=== PATIENT | male | born 1970 | race Caucasian/White ===

== ENCOUNTER 2018-09-28 14:54 | Emergency (ER) | payer BC ==
--- NOTE | 2018-09-28 15:57 | CR ---
[id number] RAD/RAD Fingers Left EXAM: LEFT HAND 3 VIEWS INDICATION: Crushed finger. COMPARISON: None. DISCUSSION: Apparent soft tissue injury involving the dorsal aspect of the second digit at the level of the distal phalanx. No fracture, dislocation or radiopaque foreign body is identified. IMPRESSION: 1. Soft tissue injury. No fracture identified. Maximilian Sommers MD 09/28/18 [id number] Thank you for allowing us to participate in the care of your patient.
[2018-09-28] MEDS ORDERED: Take Home: Acetaminophen/Codeine 300 MG/30 MG, 5 Tab Pack PO ONE (16:04)
--- NOTE | 2018-09-28 22:22 | EDM.PDOC ---
ED HPI GENERAL MEDICAL PROBLEM - General Chief Complaint: Upper Extremity Injury/Pain Stated Complaint: SMASHED L INDEX FINGER Time Seen by Provider: 09/28/18 14:54 Source of Information: Reports: Patient History Limitations: Reports: No Limitations - History of Present Illness INITIAL COMMENTS - FREE TEXT/NARRATIVE: Pt. states that he got his L index finger caught between in a trailer hitch. He states that his tetanus is up to date. He complains of pain to the distal portion of the digit. Pt. complains of decreased ROM to the digit at the DIP joint. He denies any injury other than what is isolated to the finger. Onset: Today Onset Date: 09/28/18 Duration: Constant Location: Reports: Upper Extremity, Left Quality: Reports: Sharp, Throbbing Left Finger-Index Pain Score (Numeric/FACES): 4 - Related Data Allergies Allergy/AdvReac Type Severity Reaction Status Date / Time No Known Allergies Allergy Verified 09/28/18 14:59 Home Meds: Home Meds Lisinopril/Hydrochlorothiazide [Lisinopril-Hctz 20-12.5 mg Tab] 1 each PO DAILY 09/28/18 [History] Past Medical History Cardiovascular History: Reports: Hypertension Social & Family History - Tobacco Use Smoking Status *Q: Never Smoker Review of Systems - Review of Systems Review Of Systems: ROS reveals no pertinent complaints other than HPI. ED EXAM, GENERAL - Physical Exam Exam: See Below Exam Limited By: No Limitations General Appearance: Alert, WD/WN, No Apparent Distress Extremities: Other (crush injury to distal portion of 2nd digit of L hand. Subungual hematoma noted. No obvious bony deformity noted.) ED TRAUMA EXTREMITY PROCEDURES - Additional/Other Procedure(s) Other (Free Text) Procedure(s): Nail was trephinated x 2 using a disposable electrocautery pen in the area of the hematoma. Course - Vital Signs Last Recorded V/S: Last Vital Signs Temp 36.8 C 09/28/18 15:05 Pulse 73 09/28/18 15:05 Resp 16 09/28/18 15:05 BP 167/97 H 09/28/18 15:05 Pulse Ox 97 09/28/18 15:05 - Orders/Labs/Meds Meds: Medications Discontinued Medications Generic Name Dose Route Start Last Admin Trade Name Freq PRN Reason Stop Dose Admin Acetaminophen/Codeine Phosphate 1 packet 09/28/18 16:04 09/28/18 16:05 Take Home: Acetam/Codeine 300-30 Mg, 5 Pack PO 09/28/18 16:05 1 packet ONETIME ONE Administration - Radiology Interpretation Free Text/Narrative:: radiographs of the finger do not reveal any acute deformity. Departure - Departure Time of Disposition: 16:10 Disposition: Home, Self-Care 01 Clinical Impression: Crushed finger, distal, Subungual hematoma of digit of hand - Discharge Information Instructions: Subungual Hematoma, [id number] Referrals: Deng Chaparro MD [Primary Care Provider] - Forms: ED Department Discharge Additional Instructions: Tylenol #3 1 every 4-6 hours as needed for pain Soak finger several times per day to keep the holes open Follow-up in clinic if there is any redness, swelling, or discharge from the area - Assessment/Plan Plan: Tylenol #3 1 every 4-6 hours as needed for pain Soak finger several times per day to keep the holes open Follow-up in clinic if there is any redness, swelling, or discharge from the area
== END 2018-09-28 16:10 | disposition home or self-care (01) ==
LOC: VM.ED 14:54
DX: S60.122A Contusion of left index finger with damage to nail, initial encounter (principal); S67.191A Crushing injury of left index finger, initial encounter; W23.1XXA Caught, crushed, jammed, or pinched between stationary objects, initial encounter
CPT/HCPCS: 11740; 73140-F1; 99283-25; A9270-GY